=== PATIENT | male | born 1940 | race Caucasian/White ===

== ENCOUNTER → 2023-09-23 13:52 | Outpatient (REF) | payer OTHER, SELFPAY | LOC: HWRAD 13:52 | PROVIDERS: ATTENDING PHYSICIAN Internal Medicine Hematology & Oncology; FAMILY PHYSICIAN Family Medicine | DX: C43.30 Malignant melanoma of unspecified part of face (principal) | CPT/HCPCS: 70492; 71250; Q9967 ==

== ENCOUNTER → 2023-10-01 11:21 | Outpatient (REF) | payer OTHER, SELFPAY ==
[2023-10-01 15:46] LABS: Blood Urea Nitrogen 16 mg/dl (9-20); Carbon Dioxide 25 mmol/L (22-30); Chloride 110 mmol/L (98-107); Glucose 91 mg/dl (70-99); Sodium 139 mmol/L (135-145); eGFR > 60.00
== END ==
LOC: HWLAB 11:21
PROVIDERS: ATTENDING PHYSICIAN Family Medicine; REFERRING PHYSICIAN Internal Medicine Hematology & Oncology
DX: I10 Essential (primary) hypertension (principal)
CPT/HCPCS: 36415; 80048

== ENCOUNTER 2024-05-14 11:21 | Emergency (ER) | payer OTHER, SELFPAY ==
[2024-05-14 11:25] VITALS: BP 156/68
[2024-05-14 11:56] LABS: % Basophils 0.3 % (0-2); % Eosinophils 0.4 % (0-6); % Immature Granulocytes 0.4 % (0-0.5); % Lymphocytes 11.7 % (20.5-51.1); % Neutrophils 77.2 % (42.2-75.2); Absolute Lymphocytes 0.9 10^3/uL (1.2-3.4); Absolute Monocytes 0.8 10^3/uL (0.1-0.6); Hemoglobin 12.1 g/dL (13.0-18.0); Mean Corp Hgb Conc. 32.7 g/dL (33.0-37.0); Mean Corpuscular Hgb 31.3 pg (27.0-31.0); Mean Corpuscular Volume 95.6 fL (80.0-94.0); Nucleated Red Blood Cells % 0 % (-); Platelet Count 201 10^3/uL (130-400); Red Blood Cell Count 3.87 10^6/uL (4.70-6.10); Red Cell Dist. Width 13.2 % (11.5-14.5); White Blood Cell Count 7.7 10^3/uL (4.8-10.8)
[2024-05-14 12:09] LABS: ALT (SGPT) 16 U/L (0-50); AST (SGOT) 18 U/L (17-59); Albumin 4.1 g/dl (3.5-5.0); Alkaline Phosphatase 47 U/L (38-126); Blood Urea Nitrogen 14 mg/dl (9-20); Calcium 8.4 mg/dl (8.4-10.2); Carbon Dioxide 25 mmol/L (22-30); Chloride 108 mmol/L (98-107); Glucose 101 mg/dl (70-99); Potassium 3.8 mmol/L (3.5-5.1); Sodium 139 mmol/L (135-145); Total Bilirubin 1.6 mg/dl (0.2-1.3); Total Protein 6.2 g/dl (6.3-8.2); eGFR > 60.00
[2024-05-14 12:20] LABS: Troponin I < 0.012 ng/ml
--- NOTE | 2024-05-14 14:23 | ED.GENMED ---
History of Present Illness
General
Chief Complaint: Chest Problem
Source: patient
Exam Limitations: none
Time Seen by Provider: 05/14/24 14:22
Nursing documentation reviewed up to this point in time: agreed with
History of Present Illness
History of Present Illness:
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 In attempt to get up from floor, pushed up with
both hands, rolled side to side, was difficult to get up but finally did. Two days later noted pain Right pectoral area and right side that has been getting worse. It was bad last night, took Tylenol with a little relief and pain was at it's worse
this a.m. 8/10, took Oxycodone 5/325 with some relief. Pain is worse with pressing on it or deep breaths. Denies SOB, n/v/d/c. Denies weakness, numbness or lightheadedness.
Past History
Past History
ED Past Medical History: Arrthythmia (a fib on Eliquis), Cancer (Prostate mets to lung), HTN and Hypercholesterolemia
ED Past Surgical History: Tonsilectomy and Other (Prostate CA, hernia repair)
Social History
Tobacco: Former smoker
Alcohol: Occasional
Personal:
Living: with family
Employment: Retired
Review of Systems
Review of Systems
Allergies reviewed?: Yes
All Other Systems: ROS reviewed and negative except as documented in HPI and ROS
Constitutional: Denies fever or fatigue
Respiratory: Denies cough or trouble breathing
Cardiac: Reports chest pain (chest wall pain)
ABD/GI: Denies abdominal pain, nausea, vomiting, diarrhea or constipated
: Denies dysuria, frequency or difficulty voiding
Musculoskeletal: Reports other (pain right upper chest wall and right side); Denies edema, neck pain or back pain
Skin: Reports no symptoms
Neurological: Reports no symptoms
Phy Exam
Physical Exam
Physical Exam:
GENERAL: No acute distress. A&Ox3.
CONSTITUTIONAL: Afebrile.
EYES: clear, conjunctivae normal
ENMT: moist mucus membranes, Pharynx nl
RESPIRATORY: Regular respirations, nonlabored, lungs clear.
CARDIOVASCULAR: Regular rate and rhythm, no murmurs, no rubs.
GI: Soft, nontender, normal BS
MUSCULOSKELETAL: Immediately tender to palpation over right pectoral muscle. Ribs non tender to percussion. Moves with ease. Well perfused.
SKIN: Warm, dry, pink. Skin of chest wall is normal, no ecchymosis
PSYCH: Normal mood and affect. Well kept, interactive and appropriate
NEUROLOGIC: Awake, alert and oriented. No focal neurological deficits
Course
Orders/Labs/Results
Orders:
Orders
05/14/24 11:23
Electrocardiogram (*1) Urgent
Reason for Study: Chest Pain
EKG- Treatment ONCE
CXR2 [CR Chest - 2 Views ] Urgent
Comment:
Reason For Exam: chest pain
05/14/24 11:46
Complete Blood Count/With Diff Urgent
Comprehensive Metabolic Panel Urgent
Troponin I Urgent
Abnormal Lab Results
05/14/24
11:46
RBC 3.87 L 10^6/uL
(4.70-6.10)
Hgb 12.1 L g/dL
(13.0-18.0)
Hct 37.0 L %
(39.0-52.0)
MCV 95.6 H fL
(80.0-94.0)
MCH 31.3 H pg
(27.0-31.0)
MCHC 32.7 L g/dL
(33.0-37.0)
Absolute Lymphs (auto) 0.9 L 10^3/uL
(1.2-3.4)
Absolute Monos (auto) 0.8 H 10^3/uL
(0.1-0.6)
Neutrophils % 77.2 H %
(42.2-75.2)
Lymphocytes % 11.7 L %
(20.5-51.1)
Monocytes % 10.0 H %
(1.7-9.3)
Chloride 108 H mmol/L
(98-107)
Glucose 101 H mg/dl
(70-99)
Total Bilirubin 1.6 H mg/dl
(0.2-1.3)
Total Protein 6.2 L g/dl
(6.3-8.2)
05/14/24 11:46
05/14/24 11:46
Vital Signs
Initial and Last Documented VS:
Initial Vital Signs
Temp Pulse Resp BP Pulse Ox
98.4 F 70 16 156/68 97
05/14/24 11:25 05/14/24 11:25 05/14/24 11:25 05/14/24 11:25 05/14/24 11:25
Last Documented Vital Signs
Temp Pulse Resp BP Pulse Ox
98.4 F 64 16 113/58 96
05/14/24 11:25 05/14/24 15:30 05/14/24 11:25 05/14/24 15:00 05/14/24 15:30
MDM/Problems Addressed
Differential Diagnosis Includes:
chest wall/rib strain,
MDM/Problems Addressed:
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 In attempt to get up from floor, pushed up with
both hands, rolled side to side, was difficult to get up but finally did. Two days later noted pain Right pectoral area and right side that has been getting worse. It was bad last night, took Tylenol with a little relief and pain was at it's worse
this a.m. 8/10, took Oxycodone 5/325 with some relief. Pain is worse with pressing on it or deep breaths. Denies SOB, n/v/d/c. Denies weakness, numbness or lightheadedness.
EKG NSR
CBC unremarkable
CMP unremarkable
Troponin WNL
CXR: Radiology report read: IMPRESSION:
Right perihilar opacity suspicious for pneumonia. Recommend follow-up to ensure resolution.
Moderate hiatal hernia.
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
Pt has lung CA Right upper lung field and had radiation tx x 4 there, this is most likely the opacity seen on xray. Pt has no symptoms for pneumonia.
Chronic conditions affecting care: HTN and Arrhythmia (a fib on Eliquis)
*EKG
EKG Intrepretation Date: 05/14/24
Interpretation: normal
Heart Rate: 68
Rate: normal
Rhythm: sinus
Morral: normal axis
Interval: normal interval
QRS Pattern: normal QRS
Ischemia: no ischemia
*Critical Care Note
Total Time (30-74mins, 75-104mins- exclusive of procedures): Not Applicable
ED Attending Note
-
Portions of this chart may have been created with voice recognition software.� Occasional wrong word or��sound alike� substitutions may have occurred due to the inherent limitations of voice recognition software.
Discharge Plan
Departure
Patient Disposition: Home (Routine Discharge)
Date of Disposition: 05/14/24
Time of Disposition: 15:22
Patient with high blood pressure during this ER visit?: No
Condition: Good
Discharge Problem:
Muscle strain of chest wall
Instructions: Muscle strain
Prescriptions:
No Action
alendronate 70 MG tablet
70 mg PO WE
amlodipine 5 MG tablet
5 mg PO DAILY
acetaminophen 325 mg Tablet
650 mg PO Q6HPRN PRN (Reason: MILD PAIN)
pravastatin 40 mg Tablet
40 mg PO QPM
metoprolol succinate 50 mg Tablet Extended Release 24 Hr
50 mg PO QPM
cyanocobalamin (vitamin B-12) 1,000 mcg Tablet
1,000 mcg PO DAILY
mycophenolate mofetil [CellCept] 500 mg Tablet
1,000 mg PO BID
pyridostigmine bromide [Mestinon] 60 mg Tablet
60 mg PO 5/D
valsartan 320 mg Tablet
320 mg PO QPM
ferrous sulfate 27 mg iron Tablet
27 mg PO DAILY
cholecalciferol (vitamin D3) [Vitamin D3] 125 mcg (5,000 unit) Tablet
125 mcg PO DAILY
PreserVision AREDS 2,148 mcg-113 mg-45 mg-17.4mg Tablet
1 tab PO BID
Eliquis 2.5 mg Tablet
2.5 mg PO BID
Referrals:
Deion Khalil MD [Family Provider] - As needed
Activity Restrictions/Additional Instructions:
As we discussed, your workup here shows nothing worrisome.
Heating pad to chest wall may help
Tylenol as needed.
No lifting with the right arm until the chest wall pain is better.
Splint the area with a pillow or rolled up towel or your hand if you feel cough or sneeze coming on.
Interventions
Interventions:
*Risk Screen - Suicide Last Done: 05/14/24 11:25
*General Assessment Last Done: 05/14/24 11:25
*Neglect/Abuse Screening Last Done: 05/14/24 11:25
ED- Fall Risk Assessment Last Done: 05/14/24 14:33
*ED COVID-19 Vaccine History Last Done: 05/14/24 14:33
*Nursing Disposition Last Done: 05/14/24 15:43
ED- Cardiac Assessment Last Done: 05/14/24 14:33
ED- Pulmonary Assessment Last Done: 05/14/24 14:33
Discharge Date and Time
Discharge Date/Time: 05/14/24 15:44
Print Language: SINHALA
[2024-05-14 14:33] VITALS: BMI 24.6
[2024-05-14 14:43] VITALS: BP 133/67
[2024-05-14 15:00] VITALS: BP 113/58
== END 2024-05-14 15:44 | disposition home or self-care (01) ==
LOC: EMR 11:21
PROVIDERS: Emergency Medicine; EMERGENCY PHYSICIAN Emergency Medicine; FAMILY PHYSICIAN Family Medicine
DX: S29.011A Strain of muscle and tendon of front wall of thorax, initial encounter (principal); X50.1XXA Overexertion from prolonged static or awkward postures, initial encounter; I48.91 Unspecified atrial fibrillation; Z79.01 Long term (current) use of anticoagulants; I10 Essential (primary) hypertension; E78.00 Pure hypercholesterolemia, unspecified; Z87.891 Personal history of nicotine dependence
CPT/HCPCS: 99285; 71046; 80053; 84484; 85025; 93005